=== PATIENT | male | born 1935 | race Two or more races ===

== ENCOUNTER 2017-07-29 22:56 | Emergency (ER) | payer MEDICARE, OTHER ==
[2017-07-29] MEDS ORDERED: Amiodarone 150 MG/3 ML SDV ONE (23:02)
[2017-07-29] MEDS ORDERED: cefTRIAXone 2 GM AdvVial IV ONE (23:55)
[2017-07-29] MEDS ORDERED: Sodium Chloride 0.9% 100 ML AdvBag ONE (23:55)
[2017-07-29] MEDS ORDERED: Propofol 1,000 MG/100 ML SDV ONE (23:55)
[2017-07-30] MEDS ORDERED: Sodium Chloride 0.9% 100 ML ONE (00:02)
[2017-07-30] MEDS ORDERED: Lidocaine 0.4%/D5W 2 GM/500 ML BAG ONE (00:11)
--- NOTE | 2017-07-30 05:52 | EDM.PDOC ---
ED HPI GENERAL MEDICAL PROBLEM - General Chief Complaint: CPR in Progress Stated Complaint: [facility] Time Seen by Provider: 07/29/17 22:56 - History of Present Illness INITIAL COMMENTS - FREE TEXT/NARRATIVE: 81-year-old male brought in by EMS with return of circulation following CPR. Patient was found unresponsive Had CPR started by family EMS was activated clinic response unit took over attached any ED and he received 1 defibrillatory shock. Advance life support showed up he received a second shock he developed cardiac activity including a strong pulse and good blood pressure he was intubated in the field no evidence of spontaneous respirations. The exact sequence of events that led to this arrest is unknown as it was unwitnessed The patient recently came up here from the [place]. He is known to have lung disease he was recently started on oxygen he has not been using it all the time he was not able to use it on his plane flight and to [place] and according to family looked awful when he got off the plane 4 days ago. The patient takes Lasix and medication for his prostate. ED ROS GENERAL - Review of Systems Review Of Systems: Unable To Obtain ED EXAM, CPR - Physical Exam Exam: See Below Limited By: Unresponsive, Other (Patient has a reasonable blood pressure and pulse he is unresponsive ET tube in place he is trying to have respirations on his own and is requiring further medication.) General Appearance: Thin (He has significant abdominal distention) Eye Exam: Bilateral Eye: Other (Pupils are pinpoint) Ears: Normal External Exam, Normal Canal, Normal TMs Nose: Normal Inspection, Normal Mucosa Throat/Mouth: Normal Inspection, Normal Lips, Other (Endotracheal tube in place) Head: Atraumatic, Normocephalic Neck: Other (Hard to assess with active bagging going on) Respiratory Chest: Other (He's had a few bibasilar breath sounds breath sounds are equal) Cardiovascular: Regular Rate, Rhythm, No Edema GI/Abdominal Exam: Other (Hypoactive bowel sounds abdomen is distended the distention improved with NG suctioning) (Male) Exam: No Hernia, Normal Inspection Extremities: No Pedal Edema Neurological: Unresponsive Skin Exam: Cool Course - Orders/Labs/Meds Orders: Active Orders 24 hr Category Date Time Status EKG Documentation Completion [RC] ASDIRECTED Care 07/29/17 23:11 Active Steinberg Catheter Insertion [Insert Urinary Catheter] [OM. Care 07/29/17 23:11 Ordered PC] Q24H RT Arterial Blood Gases, ABG [RC] ONETIME Care 07/29/17 23:11 Active Urinary Catheter Assessment [RC] ASDIRECTED Care 07/30/17 03:20 Active Chest 1V Frontal [CR] Stat Exams 07/29/17 22:58 Taken CULTURE BLOOD [BC] Stat Lab 07/30/17 23:55 Received EKG 12 Lead [EK] Stat Ther 07/29/17 23:11 Ordered Labs: Laboratory Tests 07/29/17 07/29/17 07/29/17 Range/Units 23:49 23:55 23:55 WBC (4.23-9.07) K/mm3 Corrected WBC RBC (4.63-6.08) M/mm3 Hgb (13.7-17.5) gm/L Hct (40.1-51.0) % MCV (79.0-92.2) fl MCH (25.7-32.2) pg MCHC (32.2-35.5) g/dl RDW Std Deviation (35.1-43.9) fL Plt Count (163-337) K/mm3 MPV (9.4-12.3) fl Neutrophils % (Manual) (40-60) % Band Neutrophils % (0-10) % Lymphocytes % (Manual) (20-40) % Atypical Lymphs % % Immat Monocytes % (Man) Monocytes % (Manual) (2-10) % Eosinophils % (Manual) (0.8-7.0) % Basophils % (Manual) (0.2-1.2) Metamyelocytes % Myelocytes % Promyelocytes % Blast Cells % Plasma Cell % (Manual) Immature Gran # Absolute Neutrophils Absolute Seg Neuts Band Neutrophils # Lymphocytes # (Manual) Monocytes # (Manual) Eosinophils # (Manual) Basophils # (Manual) Absolute Metamyelocyte Absolute Myelocytes Absolute Promyelocytes Absolute Plasma Cells Nucleated RBCs Differential Comment Hypersegmented Neuts Atypical Lymphocytes Vacuolated Monocytes Absolute Blast Cells Toxic Granulation Dohle Bodies Pelger-Huet Cells Megakaryocytic Frags Stoney Rods WBC Morphology Comment Platelet Estimate Clumped Platelets Giant Platelets Plt Morphology Comment Polychromasia Hypochromasia Poikilocytosis Basophilic Stippling Anisocytosis Microcytosis Macrocytosis Spherocytes Pappenheimer Bodies Sickle Cells Target Cells Tear Drop Cells Ovalocytes Stomatocytes Helmet Cells [place] Bodies [place] Rings [place] Cells Elliptocytes Acanthocytes (Spur) Rouleaux Hemoglobin C Crystals Schistocytes RBC Morph Comment Smear Path Review Anoop Bodies PT 13.6 H (9.5-12.1) SECONDS INR 1.25 APTT 34 H (24-31) SECONDS Sodium 136 (136-145) mEq/L Potassium 1.4 L* (3.5-5.1) mEq/L Chloride 100 (98-107) mEq/L Carbon Dioxide 24 (21-32) mEq/L Anion Gap 13.4 (5-15) BUN 39 H (7-18) mg/dL Creatinine 1.5 H (0.7-1.3) mg/dL Est Cr Clr Drug Dosing TNP Estimated GFR (MDRD) 45 (>60) mL/min BUN/Creatinine Ratio 26.0 H (14-18) Glucose 264 H (83-115) mg/dL Lactic Acid (0.4-2.0) mmol/L Calcium 6.1 L (8.5-10.1) mg/dL Total Bilirubin 1.0 (0.2-1.0) mg/dL AST 29 (15-37) U/L ALT 22 (16-63) U/L Alkaline Phosphatase 82 (46-116) U/L Lactate Dehydrogenase 220 (85-227) U/L Troponin I 0.115 H* (0.00-0.056) ng/mL Total Protein 4.8 L (6.4-8.2) g/dl Albumin 1.6 L (3.4-5.0) g/dl Globulin 3.2 gm/dL Albumin/Globulin Ratio 0.5 L (1-2) Amylase 32 (20-160) U/L Urine Color Yellow (Yellow) Urine Appearance Clear (Clear) Urine pH 7.0 (5.0-8.0) Ur Specific [place] 1.025 (1.005-1.030) Urine Protein 2+ H (Negative) Urine Glucose (UA) Negative (Negative) Urine Ketones Negative (Negative) Urine Occult Blood 1+ H (Negative) Urine Nitrite Negative (Negative) Urine Bilirubin Negative (Negative) Urine Urobilinogen 1.0 (0.2-1.0) Ur Leukocyte Esterase Negative (Negative) Urine Opiates Screen (NEGATIVE) Ur Buprenorphine Scrn (NEGATIVE) Ur Oxycodone Screen (NEGATIVE) Urine Methadone Screen (NEGATIVE) Ur Propoxyphene Screen (NEGATIVE) Ur Barbiturates Screen (NEGATIVE) Ur Tricyclics Screen (NEGATIVE) Ur Phencyclidine Scrn (NEGATIVE) Ur Amphetamine Screen (NEGATIVE) U Methamphetamines Scrn (NEGATIVE) U Benzodiazepines Scrn (NEGATIVE) U Cocaine Metab Screen (NEGATIVE) U Marijuana (THC) Screen (NEGATIVE) Ethyl Alcohol 0.00 (0.00) gm% Slides for Path Review 07/29/17 07/29/17 07/29/17 Range/Units 23:55 23:55 23:55 WBC 12.04 H (4.23-9.07) K/mm3 Corrected WBC RBC 3.07 L (4.63-6.08) M/mm3 Hgb 9.6 L (13.7-17.5) gm/L Hct 31.4 L (40.1-51.0) % MCV 102.3 H (79.0-92.2) fl MCH 31.3 (25.7-32.2) pg MCHC 30.6 L (32.2-35.5) g/dl RDW Std Deviation 49.5 H (35.1-43.9) fL Plt Count 183 (163-337) K/mm3 MPV 11.2 (9.4-12.3) fl Neutrophils % (Manual) 89 H (40-60) % Band Neutrophils % 1 (0-10) % Lymphocytes % (Manual) 2 L (20-40) % Atypical Lymphs % 5 % Immat Monocytes % (Man) Monocytes % (Manual) 2 (2-10) % Eosinophils % (Manual) 0 L (0.8-7.0) % Basophils % (Manual) 0 L (0.2-1.2) Metamyelocytes % Myelocytes % 1 Promyelocytes % Blast Cells % Plasma Cell % (Manual) Immature Gran # Absolute Neutrophils Absolute Seg Neuts Band Neutrophils # Lymphocytes # (Manual) Monocytes # (Manual) Eosinophils # (Manual) Basophils # (Manual) Absolute Metamyelocyte Absolute Myelocytes Absolute Promyelocytes Absolute Plasma Cells Nucleated RBCs Differential Comment Hypersegmented Neuts Atypical Lymphocytes Vacuolated Monocytes Absolute Blast Cells Toxic Granulation Dohle Bodies Pelger-Huet Cells Megakaryocytic Frags Stoney Rods WBC Morphology Comment Platelet Estimate Adequate Clumped Platelets Giant Platelets Plt Morphology Comment Normal Polychromasia Hypochromasia Poikilocytosis Basophilic Stippling Anisocytosis Microcytosis Macrocytosis Spherocytes Pappenheimer Bodies Sickle Cells Target Cells Tear Drop Cells Ovalocytes Stomatocytes Helmet Cells [place] Bodies [place] Rings [place] Cells Elliptocytes Acanthocytes (Spur) Rouleaux Hemoglobin C Crystals Schistocytes RBC Morph Comment Normal Smear Path Review Anoop Bodies PT (9.5-12.1) SECONDS INR APTT (24-31) SECONDS Sodium (136-145) mEq/L Potassium (3.5-5.1) mEq/L Chloride (98-107) mEq/L Carbon Dioxide (21-32) mEq/L Anion Gap (5-15) BUN (7-18) mg/dL Creatinine (0.7-1.3) mg/dL Est Cr Clr Drug Dosing Estimated GFR (MDRD) (>60) mL/min BUN/Creatinine Ratio (14-18) Glucose (83-115) mg/dL Lactic Acid 4.0 H (0.4-2.0) mmol/L Calcium (8.5-10.1) mg/dL Total Bilirubin (0.2-1.0) mg/dL AST (15-37) U/L ALT (16-63) U/L Alkaline Phosphatase (46-116) U/L Lactate Dehydrogenase (85-227) U/L Troponin I (0.00-0.056) ng/mL Total Protein (6.4-8.2) g/dl Albumin (3.4-5.0) g/dl Globulin gm/dL Albumin/Globulin Ratio (1-2) Amylase (20-160) U/L Urine Color (Yellow) Urine Appearance (Clear) Urine pH (5.0-8.0) Ur Specific [place] (1.005-1.030) Urine Protein (Negative) Urine Glucose (UA) (Negative) Urine Ketones (Negative) Urine Occult Blood (Negative) Urine Nitrite (Negative) Urine Bilirubin (Negative) Urine Urobilinogen (0.2-1.0) Ur Leukocyte Esterase (Negative) Urine Opiates Screen Presumptive positive H (NEGATIVE) Ur Buprenorphine Scrn Negative (NEGATIVE) Ur Oxycodone Screen Negative (NEGATIVE) Urine Methadone Screen Negative (NEGATIVE) Ur Propoxyphene Screen Negative (NEGATIVE) Ur Barbiturates Screen Negative (NEGATIVE) Ur Tricyclics Screen Negative (NEGATIVE) Ur Phencyclidine Scrn Negative (NEGATIVE) Ur Amphetamine Screen Negative (NEGATIVE) U Methamphetamines Scrn Negative (NEGATIVE) U Benzodiazepines Scrn Negative (NEGATIVE) U Cocaine Metab Screen Negative (NEGATIVE) U Marijuana (THC) Screen Negative (NEGATIVE) Ethyl Alcohol (0.00) gm% Slides for Path Review 07/30/17 07/30/17 Range/Units 23:55 23:55 WBC Cancelled (4.23-9.07) K/mm3 Corrected WBC Cancelled RBC Cancelled (4.63-6.08) M/mm3 Hgb Cancelled (13.7-17.5) gm/L Hct Cancelled (40.1-51.0) % MCV Cancelled (79.0-92.2) fl MCH Cancelled (25.7-32.2) pg MCHC Cancelled (32.2-35.5) g/dl RDW Std Deviation Cancelled (35.1-43.9) fL Plt Count Cancelled (163-337) K/mm3 MPV Cancelled (9.4-12.3) fl Neutrophils % (Manual) Cancelled (40-60) % Band Neutrophils % Cancelled (0-10) % Lymphocytes % (Manual) Cancelled (20-40) % Atypical Lymphs % Cancelled % Immat Monocytes % (Man) Cancelled Monocytes % (Manual) Cancelled (2-10) % Eosinophils % (Manual) Cancelled (0.8-7.0) % Basophils % (Manual) Cancelled (0.2-1.2) Metamyelocytes % Cancelled Myelocytes % Cancelled Promyelocytes % Cancelled Blast Cells % Cancelled Plasma Cell % (Manual) Cancelled Immature Gran # Cancelled Absolute Neutrophils Cancelled Absolute Seg Neuts Cancelled Band Neutrophils # Cancelled Lymphocytes # (Manual) Cancelled Monocytes # (Manual) Cancelled Eosinophils # (Manual) Cancelled Basophils # (Manual) Cancelled Absolute Metamyelocyte Cancelled Absolute Myelocytes Cancelled Absolute Promyelocytes Cancelled Absolute Plasma Cells Cancelled Nucleated RBCs Cancelled Differential Comment Cancelled Hypersegmented Neuts Cancelled Atypical Lymphocytes Cancelled Vacuolated Monocytes Cancelled Absolute Blast Cells Cancelled Toxic Granulation Cancelled Dohle Bodies Cancelled Pelger-Huet Cells Cancelled Megakaryocytic Frags Cancelled Stoney Rods Cancelled WBC Morphology Comment Cancelled Platelet Estimate Cancelled Clumped Platelets Cancelled Giant Platelets Cancelled Plt Morphology Comment Cancelled Polychromasia Cancelled Hypochromasia Cancelled Poikilocytosis Cancelled Basophilic Stippling Cancelled Anisocytosis Cancelled Microcytosis Cancelled Macrocytosis Cancelled Spherocytes Cancelled Pappenheimer Bodies Cancelled Sickle Cells Cancelled Target Cells Cancelled Tear Drop Cells Cancelled Ovalocytes Cancelled Stomatocytes Cancelled Helmet Cells Cancelled [place] Bodies Cancelled [place] Rings Cancelled [place] Cells Cancelled Elliptocytes Cancelled Acanthocytes (Spur) Cancelled Rouleaux Cancelled Hemoglobin C Crystals Cancelled Schistocytes Cancelled RBC Morph Comment Cancelled Smear Path Review Cancelled Anoop Bodies Cancelled PT (9.5-12.1) SECONDS INR APTT (24-31) SECONDS Sodium (136-145) mEq/L Potassium (3.5-5.1) mEq/L Chloride (98-107) mEq/L Carbon Dioxide (21-32) mEq/L Anion Gap (5-15) BUN (7-18) mg/dL Creatinine (0.7-1.3) mg/dL Est Cr Clr Drug Dosing Estimated GFR (MDRD) (>60) mL/min BUN/Creatinine Ratio (14-18) Glucose (83-115) mg/dL Lactic Acid (0.4-2.0) mmol/L Calcium (8.5-10.1) mg/dL Total Bilirubin (0.2-1.0) mg/dL AST (15-37) U/L ALT (16-63) U/L Alkaline Phosphatase (46-116) U/L Lactate Dehydrogenase (85-227) U/L Troponin I (0.00-0.056) ng/mL Total Protein (6.4-8.2) g/dl Albumin (3.4-5.0) g/dl Globulin gm/dL Albumin/Globulin Ratio (1-2) Amylase (20-160) U/L Urine Color Cancelled (Yellow) Urine Appearance Cancelled (Clear) Urine pH Cancelled (5.0-8.0) Ur Specific [place] Cancelled (1.005-1.030) Urine Protein Cancelled (Negative) Urine Glucose (UA) Cancelled (Negative) Urine Ketones Cancelled (Negative) Urine Occult Blood Cancelled (Negative) Urine Nitrite Cancelled (Negative) Urine Bilirubin Cancelled (Negative) Urine Urobilinogen Cancelled (0.2-1.0) Ur Leukocyte Esterase Cancelled (Negative) Urine Opiates Screen (NEGATIVE) Ur Buprenorphine Scrn (NEGATIVE) Ur Oxycodone Screen (NEGATIVE) Urine Methadone Screen (NEGATIVE) Ur Propoxyphene Screen (NEGATIVE) Ur Barbiturates Screen (NEGATIVE) Ur Tricyclics Screen (NEGATIVE) Ur Phencyclidine Scrn (NEGATIVE) Ur Amphetamine Screen (NEGATIVE) U Methamphetamines Scrn (NEGATIVE) U Benzodiazepines Scrn (NEGATIVE) U Cocaine Metab Screen (NEGATIVE) U Marijuana (THC) Screen (NEGATIVE) Ethyl Alcohol (0.00) gm% Slides for Path Review Cancelled Meds: Medications Discontinued Medications Generic Name Dose Route Start Last Admin Trade Name Freq PRN Reason Stop Dose Admin Amiodarone HCl Confirm 07/29/17 23:02 Cordarone Administered 07/29/17 23:03 Dose 150 mg .ROUTE .STK-MED ONE Amiodarone HCl/Dextrose Confirm 07/29/17 23:01 Nexterone In Dextrose 360 Mg/200 Ml Administered 07/29/17 23:02 Dose 360 mg in 200 mls @ as directed .ROUTE .STK-MED ONE Sodium Chloride Confirm 07/30/17 00:02 Normal Saline Administered 07/30/17 00:03 Dose 100 mls @ as directed .ROUTE .STK-MED ONE Lidocaine HCl/Dextrose Confirm 07/30/17 00:11 Lidocaine 2 Gm/D5w 500 Ml Administered 07/30/17 00:12 Dose 2 gm in 500 mls @ as directed .ROUTE .STK-MED ONE - Re-Assessments/Exams Free Text/Narrative Re-Assessment/Exam: 07/30/17 05:55 Refer to nursing notes for sequence of events the patient had good blood pressure upon arrival here but this did gradually come down requiring support with pressor agents, Levophed and fluid therapy patient's case was discussed with Dr. Buenrostro at [facility] emergency room in [place]. It took us quite a long time to obtain labs and labs were not available at the time of transfer after the patient left our department his potassium came back at 1.5. He did have some short runs of V. tach prior to leaving the department The patient is transferred in critical condition. Refer to nursing notes for timing of medication dosing and status changes. I did have the opportunity to meet with family it was determined he was a full code at this point however further discussion needs to occur with this. Departure - Departure Time of Disposition: 00:26 Disposition: DC/Tfer to Acute Hospital 02 Condition: Critical Clinical Impression: Cardiac arrest, Respiratory arrest - Discharge Information Referrals: PCP,Unknown [Primary Care Provider] - Critical Care Note - Critical Care Note Total Time (mins): 86 (86 minutes with direct patient care discussion with receiving physician and discussing the situation with family) - My Orders Last 24 Hours: My Active Orders 07/29/17 22:58 Chest 1V Frontal [CR] Stat 07/29/17 23:11 EKG Documentation Completion [RC] ASDIRECTED Steinberg Catheter Insertion [Insert Urinary Catheter] [OM.PC] Q24H RT Arterial Blood Gases, ABG [RC] ONETIME EKG 12 Lead [EK] Stat 07/30/17 03:20 Urinary Catheter Assessment [RC] ASDIRECTED 07/30/17 23:55 CULTURE BLOOD [BC] Stat - Assessment/Plan Last 24 Hours: My Active Orders 07/29/17 22:58 Chest 1V Frontal [CR] Stat 07/29/17 23:11 EKG Documentation Completion [RC] ASDIRECTED Steinberg Catheter Insertion [Insert Urinary Catheter] [OM.PC] Q24H RT Arterial Blood Gases, ABG [RC] ONETIME EKG 12 Lead [EK] Stat 07/30/17 03:20 Urinary Catheter Assessment [RC] ASDIRECTED 07/30/17 23:55 CULTURE BLOOD [BC] Stat
--- NOTE | 2017-07-30 10:43 | CR ---
Chest: Portable view of the chest was obtained. Comparison: No previous study. Endotracheal tube is seen. Tip of the endotracheal tube lies about 3.1 cm above the tino. Nasogastric tube is seen. Tip lies within the proximal stomach. Lungs are clear with no acute parenchymal densities. Bony structures are osteopenic. Impression: 1. Endotracheal tube which is satisfactory in position. Nasogastric tube could be advanced by about 4 cm for optimal position. 2. Nothing acute is otherwise seen. Diagnostic code #3
== END 2017-07-30 00:26 ==
LOC: JD.ED 22:56 → EDBD 22:56 → JD.ED 07-30 00:26
DX: I46.9 Cardiac arrest, cause unspecified (principal)
CPT/HCPCS: 36415; 51702; 71045; 80053; 80306; 81003; 82150; 83605; 83615; 84484; 85007; 85027; 85610; 85730; 87040; 96365; 96374; 96375; 99291; 99292; G0480; J0282; J0696; J2001; J7030; J7120; J3490